=== PATIENT | female | born 1990 | race American Indian/Alaskan Native ===

== ENCOUNTER 2016-03-28 11:04 | Emergency (ER) | payer BC, MEDICAID ==
[2016-03-28 11:11] VITALS: BP 104/68
--- NOTE | 2016-03-28 12:47 | Emergency Department Report ---
ED Female HPI - General Chief complaint: Back Pain/Injury Stated complaint: NAUSEA/BACK PAIN Time Seen by Provider: 03/28/16 12:29 Source: patient Mode of arrival: Ambulatory Limitations: No Limitations - History of Present Illness Initial comments: 25 y/o complain of back pain and with white discharge x 3 days . Complaint: vaginal discharge Onset/Timin -: days(s) Are you Now?: No Last Menstrual Period: 03/06/15 EDC: 12/11/15 Associated Symptoms: denies other symptoms - Related Data Previous Rx's Medication Instructions Recorded Last Taken Type Fluconazole [Diflucan TAB] 150 mg PO ONCE #2 tablet 03/28/16 Unknown Rx Nitrofurantoin Ware/M-Cryst 100 mg PO Q12HR #14 capsule 03/28/16 Unknown Rx [Macrobid CAP] Allergies Allergy/AdvReac Type Severity Reaction Status Date / Time No Known Allergies Allergy Verified 06/17/13 20:27 ED Review of Systems ROS: Stated complaint: NAUSEA/BACK PAIN Other details as noted in HPI Constitutional: denies: chills, fever Eyes: denies: eye pain, eye discharge, vision change ENT: denies: ear pain, throat pain Respiratory: denies: cough, shortness of breath, wheezing Cardiovascular: denies: chest pain, palpitations Endocrine: no symptoms reported Gastrointestinal: denies: abdominal pain, nausea, diarrhea Genitourinary: discharge. denies: urgency, dysuria Musculoskeletal: back pain. denies: joint swelling, arthralgia Skin: denies: rash, lesions Neurological: denies: headache, weakness, paresthesias Psychiatric: denies: anxiety, depression Hematological/Lymphatic: denies: easy bleeding, easy bruising ED Past Medical Hx - Past Medical History Previous Medical History?: No - Surgical History Hx Appendectomy: Yes - Social History Smoking Status: Never Smoker Substance Use Type: None - Medications Home Medications: Home Medications Medication Instructions Recorded Confirmed Last Taken Type Fluconazole [Diflucan TAB] 150 mg PO ONCE #2 tablet 03/28/16 Unknown Rx Nitrofurantoin Ware/M-Cryst 100 mg PO Q12HR #14 capsule 03/28/16 Unknown Rx [Macrobid CAP] ED Physical Exam - General Limitations: No Limitations General appearance: alert, in no apparent distress - Head Head exam: Present: atraumatic, normocephalic - Eye Eye exam: Present: normal appearance - ENT ENT exam: Present: mucous membranes moist - Neck Neck exam: Present: normal inspection - Respiratory Respiratory exam: Present: normal lung sounds bilaterally. Absent: respiratory distress - Cardiovascular Cardiovascular Exam: Present: regular rate, normal rhythm. Absent: systolic murmur, diastolic murmur, rubs, gallop - GI/Abdominal GI/Abdominal exam: Present: soft, normal bowel sounds - Extremities Exam Extremities exam: Present: normal inspection - Back Exam Back exam: Present: normal inspection. Absent: full ROM, CVA tenderness (R), CVA tenderness (L), muscle spasm, paraspinal tenderness - Neurological Exam Neurological exam: Present: alert, oriented X3 - Psychiatric Psychiatric exam: Present: normal affect, normal mood - Skin Skin exam: Present: warm, dry, intact, normal color. Absent: rash ED Course Vital Signs 03/28/16 11:08 Temperature 98.2 F Pulse Rate 90 Respiratory 18 Rate Blood Pressure 104/68 O2 Sat by Pulse 100 Oximetry ED Medical Decision Making - Medical Decision Making Urinary tract infection Vaginal Candidiasis Critical care attestation.: If time is entered above; I have spent that time in minutes in the direct care of this critically ill patient, excluding procedure time. ED Disposition Clinical Impression: Vaginal candidiasis Urinary tract infection Qualifiers: Urinary tract infection type: site unspecified Hematuria presence: without hematuria Qualified Code(s): N39.0 - Urinary tract infection, site not specified Disposition: DISCHARGED TO HOME OR SELFCARE Is pt being admited?: No Does the pt Need Aspirin: No Condition: Stable Instructions: Vulvovaginal Candidiasis (ED), Urinary Tract Infection in Women ( ED) Prescriptions: Fluconazole [Diflucan TAB] 150 mg PO ONCE #2 tablet Nitrofurantoin Ware/M-Cryst [Macrobid CAP] 100 mg PO Q12HR #14 capsule Referrals: ERNESTINA LUO JR, MD [Primary Care Provider] - 3-5 Days Forms: Work/School Release Form(ED) Time of Disposition: 13:53
[2016-03-28 13:25] LABS: Bilirubin,Urine Negative (Negative)
[2016-03-28 13:26] LABS: Blood,Urine Negative (Negative); Ketones,Urine Trace mg/dL (Negative); Leukocyte Esterase,Urine Trace (Negative); Nitrite,Urine Positive (Negative); PH,Urine 6.5 (5.0-7.0); Protein,Urine <15 mg/dL mg/dL (Negative)
[2016-03-28 13:29] LABS: Bacteria,Urine 1+ /HPF (Negative); Mucus,Urine 2+ /HPF
== END 2016-03-28 14:06 | disposition home or self-care (01) ==
LOC: ED 11:04
DX: N39.0 Urinary tract infection, site not specified (principal); B37.3 Candidiasis of vulva and vagina; Z90.49 Acquired absence of other specified parts of digestive tract
CPT/HCPCS: 81001; 81025; 87210; 99283